=== PATIENT | male | born 1940 | race Caucasian/White ===

== ENCOUNTER → 2016-06-11 10:55 | Outpatient (CLI) | payer MEDICARE, BC ==
[2015-08-10 10:24] VITALS: BMI 30.7
[~2016-06-11 10:55] MED LIST: ACID REDUCER PO; ASPIRIN81 MG PO; BRILINTA90 MG PO; CRESTOR10 MG PO; MULTI-DAY VITAM1 TAB PO; PLAVIX75 MG PO; PRAVACHOL80 MG PO; PRINIVIL20 MG PO; VITAMIN C1000 MG PO; VITAMIN D250000 UNIT PO; VOLTAREN75 MG PO; ZANTAC150 MG PO
== END | disposition home or self-care (01) ==
LOC: D.CT 10:55
DX: E27.9 Disorder of adrenal gland, unspecified (principal)

== ENCOUNTER → 2016-12-06 10:27 | Outpatient (CLI) | payer MEDICARE, BC ==
[2015-08-10 10:24] VITALS: BMI 30.7
== END | disposition home or self-care (01) ==
LOC: D.CT 10:27
DX: E27.9 Disorder of adrenal gland, unspecified (principal)

== ENCOUNTER → 2017-04-09 08:18 | Outpatient (CLI) | payer MEDICARE, BC ==
[2015-08-10 10:24] VITALS: BMI 30.7
== END | disposition home or self-care (01) ==
LOC: D.MRI 08:18
DX: M25.512 Pain in left shoulder (principal)

== ENCOUNTER → 2019-09-16 08:07 | Outpatient (CLI) | payer MEDICARE, BC ==
[2015-08-10 10:24] VITALS: BMI 30.7
== END | disposition home or self-care (01) ==
LOC: D.HCCECHO 08:07
PROVIDERS: ATTEND Internal Medicine Cardiovascular Disease
DX: I25.10 Atherosclerotic heart disease of native coronary artery without angina pectoris (principal)

== ENCOUNTER 2019-10-08 06:59 | Day surgery (SDC) | payer MEDICARE, BC ==
[~2019-10-08] VITALS: Ht 177.8 cm; Wt 103.8 kg
--- NOTE | ~2019-10-08 | HEMODYNAMI ---
PATIENT:JEROD RENEE MEDICAL RECORD: [id number] : 42 LOCATION:D.CAT ADMISSION DATE: 10/08/19 Generatedon:10/08/20199:47 Patient name: JEROD RENEE Patient #: [id number] SSN: [id number] : 1940 Date of study: 10/08/2019 Page: Of Hemodynamic Procedure Report Patient Data Patient Demographics Procedure consent was obtained First Name: JEROD Gender: Male Last Name: THELMA : 1940 [facility] Initial: L Age: 79 year(s) Patient #: [id number] Race: SSN: [id number] Additional ID: [id number] Contact details Address: [address] [place] [address] State: [place] City: [facility] Zip code: [address] Past Medical History Performed procedures and imaging results Date Procedure Procedure Results Comments 09/16/2019 Stress testing Positive->Intermediate with SPECT MPI risk Allergies Allergen Reaction Date Comments Reported Zocor 11/09/2014 Other allergy 11/09/2014 ZETIA Other allergy 11/09/2014 Other allergy 11/09/2014 SEAFOOD Other allergy 10/08/2019 SIMVASTATIN, LATEX, SEAFOOD, Admission Admission Data Admission Date: 10/08/2019 Admission Time: 6:59 Arrival Date: 10/08/2019 Arrival Time: 0:00 Admit Source: Other Insurance Payor: Medicare [facility] #: [id number] Height (in.): 70 BSA: 2.21 (m2) Height (cm.): 177.8 BMI: 32.84 (kg/m2) Weight (lbs.): 228.86 Weight (kg.): 103.81 Lab Results Lab Result Date: 10/08/2019 Lab Result Time: 0:00 Biochemistry Name Units Result Min Max BUN mg/dl 28 --(----)-* 7 18 Creatinine mg/dl 1.2 --(---*)-- 0.6 1.3 eGFR ml/min 61.65314 *-(----)-- 90 120 NONAFRICAN CBC Name Units Result Min Max Hematocrit % 39.7 -*(----)-- 42 54 Hemoglobin g/dl 13.5 --(*---)-- 13.5 17.5 Procedure Procedure Types Cath Procedure Diagnostic Procedure [facility] w/Coronaries Sedation Charges Moderate Sedation up to 15 minutes Procedure Description Procedure Date Procedure Date: 10/08/2019 Procedure Start Time: 9:29 Procedure End Time: 9:46 Procedure Staff Name Function Cliff Dale MD Performing Physician Jenna Napier RT Monitor Sneha Calderon RT Scrub Pedro Art RN Nurse Procedure Data Cath Procedure Fluoroscopy Diagnostic fluoroscopy Total fluoroscopy Time: 3.8 time: 3.8 min min Diagnostic fluoroscopy Total fluoroscopy dose: 626 dose: 626 mGy mGy Contrast Material Contrast Material Type Amount (ml) Isovue 370 65 Entry Location Entry Primary Successful Side Size Upsize Upsize Entry Closure Corrigan ccessful Closure Location (Fr) 1 (Fr) 2 (Fr) Remarks Device Remarks Radial Right 6 Fr Mechanical artery Short Compression Estimated blood loss: 5 ml Diagnostic catheters Device Type Used For End Catheter Placement DIAGNOSTIC Gato 110cm Procedure 5Fr catheter ([id number]) DIAGNOSTIC Luann 5Fr Procedure catheter ([id number]) Procedure Complications No complications Procedure Medications Medication Administration Route Dosage Oxygen etCO2 Nasal cannula 2 l/min Lidocaine 2% added to field 20 Heparin Flush Bag added to field 2 bags (1000units/500ml NS) 0.9% NaCl I.V. 100 ml/hr Radial Cocktail I.A. 1 syringe (Verapamil 2mg/Nitro 400mcg/Heparin 1500units) Versed I.V. 1 mg Fentanyl I.V. 50 mcg Versed I.V. 1 mg Fentanyl I.V. 50 mcg Hemodynamics Rest BSA: 2.21 (m2) HGB: 13.5 (g/dl) O2 Consumption: Estimated: 244.53 (ml/min) O2 Co nsumption indexed: Estimated:110.65 (ml/min/m) Heart Rate: 60 (bpm) Pressure Samples Time Site Value (mmHg) Purpose Heart Use Rate(bpm) 9:34 LV 112/-7,-10 Snapshot 65 Gradients Valve Time Site Site Mean SEP/DFP Peak To Heart Use 1 2 (mmHg) (sec/min) Peak Rate (mmHg) (bpm) Aortic 9:35 LV AO 87 Snapshots Pre Cath Intra NCS Post Cath Vital Signs Time Heart Resp SPO2 etCO2 NIBP (mmHg) Rhythm Pain Sedation Rate (ipm) (%) (mmHg) Status Level (bpm) 9:17:13 60 18 96 37.5 143/81(121) NSR 0 (11) 10(A) , No pain 9:21:38 55 14 94 24 130/75(108) NSR 0 (11) 10(A) , No pain 9:26:00 56 15 95 30 135/75(110) NSR 0 (11) 10(A) , No pain 9:30:20 60 15 94 25.5 125/71(97) NSR 0 (11) 10(A) , No pain 9:34:40 93 16 93 39.7 93/59(86) NSR 0 (11) 9(A) , No pain 9:38:54 64 18 94 28.4 112/59(88) NSR 0 (11) 9(A) , No pain 9:43:14 67 16 94 33 111/67(100) NSR 0 (11) 10(A) , No pain Medications Time Medication Route Dose Verified Delivered Reason Notes Effectiveness by by 9:16:09 Oxygen etCO2 2 l/min Cliff Buffie used for Nasal Chito Art RN procedure cannula 9:16:15 Lidocaine 2% added 20ml Cliff Cliff for local to vial Chito Dale MD anesthetic field 9:17:24 Heparin Flush added 2 bags Cliff Cliff used for Bag to Chito Dale MD procedure (1000units/500ml field NS) 9:22:40 0.9% NaCl I.V. 100 Cliff Buffie Per ml/hr Chito Art RN physician 9:29:31 Versed I.V. 1 mg Cliff Buffie for sedation Chito Art RN 9:29:37 Fentanyl I.V. 50 mcg Cliff Buffie for sedation Chito Art RN 9:33:11 Radial Cocktail I.A. 1 Cliff Cliff for (Verapamil syringe Chito Dale MD vasodilation 2mg/Nitro 400mcg/Heparin 1500units) 9:35:22 Versed I.V. 1 mg Cliff Buffie for sedation Dale MD Art RN 9:35:26 Fentanyl I.V. 50 mcg Cliff Vasquez for sedation Chito Art RN Procedure Log Time Note 8:31:14 Diagnostic Cath Status : Elective 8:31:40 Procedure Status Elective Heart Cath (OP). 8:31:44 Time tracking: Regular hours (M-F 7:00 - 5:00) 8:31:50 Plan of Care:Hemodynamics will remain stable., Cardiac rhythm will remain stable., Comfort level will be maintained., Respiratory function will remain adequate., Patient/ family verbilizes understanding of procedure., Procedure tolerated without complication., Recovers from procedure without complications.. 8:38:27 Lab Result : Creatinine 1.2 mg/dl 8:38:27 Lab Result : BUN 28 mg/dl 8:38:27 Lab Result : Hematocrit 39.7 % 8:38:27 Lab Result : Hemoglobin 13.5 g/dl 8:38:27 Lab Result : eGFR NONAFRICAN 61.28595 ml/min 8:38:30 Arrival Date: 10/08/2019 12:00:00 AM 8:38:32 Patient Height : 70 inches 8:38:39 Patient Weight : 228.86 lbs 8:38:49 Insurance Payor : Medicare 8:38:50 Admit Source: Other 8:39:17 Informed consent obtained and on chart 8:41:59 Lab results completed and on chart. 8:42:17 Stress Test: yes; abnormal INFERIOR 8:42:19 Alarms reviewed by R. N. 8:42:20 Sharps counted by scrub and verified by R.N. 8:43:52 Pedro Art RN sent for patient. Start room use. 8:43:57 Pre-procedure instructions explained to patient. 8:43:57 Pre-op teaching completed and patient verbalized understanding. 8:43:59 Family unavailable. 8:44:03 Patient NPO since Midnight. 8:45:41 Patient allergic to Other allergySIMVASTATIN, LATEX, SEAFOOD, 8:47:49 Risk of Mortality: .2 8:47:51 Risk of blood transfusion: .4 8:47:53 Risk of PRAVEEN: .8 9:06:53 Patient received from Pre/Post Procedure Room to CCL 1 Alert and oriented. Tansferred to table in Supine position. 9:06:55 Warm blankets applied, and frank hugger turned on for patient comfort. 9:06:55 Correct patient and procedure confirmed by team. 9:06:56 ECG and BP/O2 sat monitors applied to patient. 9:07:16 Is the patient allergic to Iodine/contrast media? Yes. 9:07:19 Was the patient premedicated? Yes 9:07:21 Is patient on blood thinner?No 9:07:23 Patient diabetic? No. 9:07:25 ----Pre-sedation anethsthesia assessment.---- 9:07:27 Previous problem with sedation/anesthesia? No ? 9:07:28 Snore? Yes 9:07:29 Sleep apnea? Yes 9:07:31 Deviated septum? No 9:07:39 Opens mouth fully? Yes 9:07:55 Sticks out tongue? Yes 9:07:58 Airway obstruction? No ? 9:08:02 Dentures? Yes IN TIGHT 9:08:07 Pre procedure: right dorsailis pedis pulse 2+ Normal; easily identifiable; not easily obliterated 9:08:10 Patient pain scale 0/10 ?. 9:15:58 Vital chart was started 9:16:05 IV patent on arrival in left antecubital with 0.9% NaCl at [facility]. 9:16:09 Oxygen 2 l/min etCO2 Nasal cannula was administered by Pedro Art RN; used for procedure; Verbal order read back and verified. 9:16:10 Right Radial & Right Groin area was prepped with chlora-prep and draped in sterile fashion 9:16:15 Lidocaine 2% 20ml vial added to field was administered by Cliff Dale MD; for local anesthetic; Verbal order read back and verified. 9:16:16 Full Disclosure recording started 9:16:20 Rhythm: sinus bradycardia 9:16:32 Baseline sample Acquired. 9:16:38 Use device set Radial Dx or PCI 9:16:39 ACIST Syringe (98552) opened to sterile field. 9:16:40 Medline Cath Pack ([id number]) opened to sterile field. 9:16:40 Bag Decanter (2002) opened to sterile field. 9:16:41 ACIST Hand Control (87422) opened to sterile field. 9:16:42 ACIST Manifold (87745) opened to sterile field. 9:16:43 MBrace Wrist Support ([id number]) opened to sterile field. 9:16:43 NEEDLE Cook 21G 4cm Radial ([id number]) opened to sterile field. 9:16:45 EMERALD Guide Wire (183-002) opened to sterile field. 9:16:46 SHEATH 6FR RAIN (5494261) opened to sterile field. 9:17:11 H&P Date Dictated: 10/08/2019 New H&P dictated by physician.. 9:17:24 Heparin Flush Bag (1000units/500ml NS) 2 bags added to field was administered by Cliff Dale MD; used for procedure; Verbal order read back and verified. 9:22:40 0.9% NaCl 100 ml/hr I.V. was administered by Pedro Art RN; Per physician; Verbal order read back and verified. 9:28:00 --------ALL STOP TIME OUT------ 9:28:01 Final Timeout: patient, procedure, and site verified with staff and physician. All members of the team are in agreement. 9:28:03 Right Radial & Right Groin site verified by team. 9:28:07 Fire Safety Assessment: A--An alcohol-based skin anteseptic being used preoperatively., C--Open oxygen or nitrous oxide is being used., D--An ESU, laser, or fiber-optic light is being used. 9:28:11 Physical assessment completed. ASA score P 2 - A patient with mild systemic disease as per Cliff Dale MD. 9:28:16 2) 60-89 Mildly reduced kidney function, and other findings (as for stage 1) point to kidney disease. 9:28:18 Maximum allowable contrast dose (3.7 X eGFR X 0.75)172 ml. 9:28:24 Sedation plan: IV Moderate Sedation Medication:Versed, Fentanyl 9:29:28 Procedure started. 9:29:31 Versed 1 mg I.V. was administered by Pedro Art RN; for sedation; Verbal order read back and verified. 9:29:37 Fentanyl 50 mcg I.V. was administered by Pedro Art RN; for sedation; Verbal order read back and verified. 9:29:59 Local anesthetic to right radial artery with Lidocaine 2% by Cliff Dale MD.INITIAL ACCESS ONLY 9:32:48 A 6 Fr Short sheath was inserted into the Right Radial artery 9:33:05 A DIAGNOSTIC Gato 110cm 5Fr catheter ([id number]) was advanced over the wire and used for Procedure. 9:33:11 Radial Cocktail (Verapamil 2mg/Nitro 400mcg/Heparin 1500units) 1 syringe I.A. was administered by Cliff Dale MD; for vasodilation; Verbal order read back and verified. 9:33:31 LV gram done using ESCUDERO 9:33:52 Injector settings: Ml/sec: 5, Volume: 15, 9:34:59 LV hemodynamics recorded. 9:35:14 EF : 50 % 9:35:22 Versed 1 mg I.V. was administered by Pedro Art RN; for sedation; Verbal order read back and verified. 9:35:26 Fentanyl 50 mcg I.V. was administered by Pedro Art RN; for sedation; Verbal order read back and verified. 9:36:43 RCA angiography performed. 9:36:52 Injector settings: Ml/sec: 3, Volume: 6, 9:38:05 Catheter exchanged over wire. 9:39:22 A DIAGNOSTIC Luann 5Fr catheter ([id number]) was advanced over the wire and used for Procedure. 9:39:49 LCA angiography performed. 9:39:54 Injector settings: Ml/sec: 3, Volume: 6, 9:40:14 ACCDominant side:Right 9:41:34 Catheter removed. 9:42:04 ZEPHYR REGULAR TR BAND (094288) opened to sterile field. 9:43:16 Sheath removed intact; hemostasis achieved with Mechanical Compression to the Right Radial artery. 9:43:18 Procedure ended.(Physican Out) 9:43:33 Fluoroscopy time 03.80 minutes. 9:43:37 Fluoroscopy dose: 626 mGy 9:43:37 Flurop Dose total: 626 9:43:42 Dose Area Product 17587 mGy/cm. 9:43:51 Contrast amount:Isovue 370 65ml. 9:44:55 Maximum allowable dose exceeded? No. 9:44:57 Sharps counted by scrub and verified by R.N. 9:45:01 [place] band inflated with 10cc of air. 9:45:06 Post Procedure Pulses reassessed and unchanged 9:45:10 Post procedure: right dorsailis pedis pulse 2+ Normal; easily identifiable; not easily obliterated. 9:45:13 Post-procedure physical assessment completed. ASA score P 2 - A patient with mild systemic disease as per Cliff Dale MD. 9:45:17 Post procedure rhythm: unchanged. 9:45:25 Estimated blood loss: 5 ml 9:45:26 Post procedure instruction explained to patient.Patient verbalizes understanding. 9:45:27 Patient needs reinforcement of post procedure teaching. 9:46:02 Procedure type changed to Cath procedure, Diagnostic procedure, LHC, LHC w/Coronaries, Sedation Charges, Moderate Sedation up to 15 minutes 9:46:16 Procedure and supply charges have been captured, reviewed, submitted and are correct. 9:46:19 Procedure Complication : No complications 9:46:22 [facility] Findings: mild to moderate CAD (<70%) 9:46:25 Vital chart was stopped 9:46:26 Operative report dictated upon procedure completion. 9:46:27 See physician's report for complete and final results. 9:46:28 Report given to Pre/Post Procedure Room. 9:46:31 Patient transfered to Pre/Post Procedure Room with Stretcher. 9:46:33 Procedure ended. 9:46:33 Full Disclosure recording stopped 9:46:40 End room use (Document Last) 9:46:53 End room use (Document Last) 9:47:10 End room use (Document Last) Device Usage Item Name Manufacture Quantity Catalog Hospital Part Current Minima l Lot# / Number Charge Number Stock Stock Serial# Code ACIST Acist 1 13586 304554 [id number] [id number] 20 Syringe Medical (33680) Systems Inc Medline Medline 1 [id number] 694125 29655 342051 5 Cath Pack ([id number]) Bag Microtek 1 914238 48764 415554 5 Decanter Medical Inc. () ACIST Hand Acist 1 39123 128481 627382 062502 5 Control Medical (38842) Systems Inc ACIST Acist 1 38157 794598 644881 897623 5 Manifold Medical (40549) Systems Inc MBrace Advanced 1 140-0250-00 690205 77140 406401 5 Wrist Vascular Support Dynamics ([id number]) NEEDLE Cook PolyServe Medical 1 [id number] 442006 966497 262018 5 21G 4cm Radial (P62060) EMERALD Cardinal 1 502-683 012443 660023 357584 5 Guide Wire Health (394-455) SHEATH 6FR Cardinal 1 0030027 709317 7765163 008373 5 [facility] Health (8648585) DIAGNOSTIC Terumo 1 40-5023 296817 793823 813732 5 Gato 110cm 5Fr catheter (195603) DIAGNOSTIC Terumo 1 40-5022 609780 846624 160043 5 Luann 5Fr catheter (466274) ZEPHYR Cardinal 1 522244 824688 3964649 348315 5 REGULAR TR Health BAND (272521) Signature Audit [place] Stage Time Signature Unsigned Intra-Procedure 10/08/2019 Jenna Napier 9:46:53 AM RT(R) Intra-Procedure 10/08/2019 Pedro Art RN 9:47:10 AM Intra-Procedure 10/08/2019 Cliff Dale MD 9:47:32 AM [facility] [address] [place] [address]
[2019-10-08] MEDS ORDERED: LEXAPRO10 MG PO (07:28)
[2019-10-08] MEDS ORDERED: PROTONIX40 MG PO (07:28)
[2019-10-08] MEDS ORDERED: DIOVAN80 MG PO (07:29)
[2019-10-08] MEDS ORDERED: RELAFEN750 MG PO (07:30)
[2019-10-08 07:45] VITALS: BP 144/65; Ht 177.8 cm; Wt 103.8 kg
[2019-10-08 08:08] LABS: ANION GAP 11.3 mmol/L (8-16); CALCIUM 8.5 mg/dL (8.5-10.1); CARBON DIOXIDE 24.9 mmol/L (21.0-32.0); CHOL - HDL RATIO 2.4 ratio (2.3-4.9); CREATININE - SERUM 1.2 mg/dL (0.6-1.3); LDL-HDL RATIO 1.2 ratio (1.5-3.5); POTASSIUM - SERUM 4.2 mmol/L (3.5-5.1)
[2019-10-08 08:10] LABS: BASOPHILS 0.1 % (0-2); EOSINOPHILS 1.7 % (0-7); HEMATOCRIT 39.7 % (42.0-54.0); HEMOGLOBIN 13.5 g/dL (13.5-17.5); IMMATURE GRANULOCYTES 0.4 % (0-5); LYMPHOCYTES 44.6 % (15-50); MCH 31.7 pg (26.0-34.0); MCV 93.2 fL (80.0-100.0); MEAN PLATELET VOLUME 10.4 fL (7.4-10.4); MONOCYTES 11.3 % (2-11); NEUTROPHILS 41.9 % (40-80); PLATELET COUNT 261 10x3/uL (130-400); RBC 4.26 10x6/uL (4.20-6.10); RDW 15.6 % (11.5-14.5); WBC 8.2 10x3/uL (4.8-10.8)
--- NOTE | 2019-10-08 09:59 | NUR ---
PT ARRIVED BY STRETCHER. PLACED ON MONITORS. ASSESSMENT COMPLETED. VSS AT THIS TIME. FAMILY AT BEDSIDE. DR. STEEL ROUNDED AND SPOKE WITH PT'S FAMILY POST PROCEDURE. CALL LIGHT WITHIN REACH.
--- NOTE | 2019-10-08 10:15 | NUR ---
RIGHT WRIST Z BAND IN PLACE. NO BLEEDING/HEMATOMA NOTED. CALL LIGHT WITHIN REACH. VSS AT THIS TIME. DENIES NAUSEA/PAIN. RIGHT HAND CAP REFILL < 3 SECS AND WARM TO TOUCH.
--- NOTE | 2019-10-08 10:45 | NUR ---
RIGHT WRIST Z BAND IN PLACE. NO BLEEDING/HEMATOMA NOTED. CALL LIGHT WITHIN REACH. VSS AT THIS TIME. PT RESTING COMFORTABLY.
--- NOTE | 2019-10-08 11:00 | NUR ---
2cc OF AIR REMOVED FROM Z BAND. NO BLEEDING/HEMATOMA NOTED. PT TOLERATED WELL. MORE AWAKE AT THIS TIME. SET UP WITH COFFEE AND SANDWICH TRAY. VSS. NO OTHER NEEDS AT THIS TIME.
--- NOTE | 2019-10-08 11:15 | NUR ---
3cc OF AIR REMOVED FROM Z BAND. NO BLEEDING/HEMATOMA NOTED. CALL LIGHT WITHIN REACH. VSS.
--- NOTE | 2019-10-08 11:30 | NUR ---
4cc OF AIR REMOVED FROM Z BAND. NO BLEEDING/HEMATOMA NOTED. CALL LIGHT WITHIN REACH. VSS AT THIS TIME. DENIES NAUSEA/PAIN.
--- NOTE | 2019-10-08 11:45 | NUR ---
Z BAND REMOVED AND DRESSING APPLIED. NO BLEEDING/HEMATOMA NOTED. PT TOLERATED WELL. PIV D/C'D WITH CATH TIP INTACT. PT INSTRUCTED TO GET UP AND DRESSED AT THIS TIME. FAMILY AT BEDSIDE TO ASSIST.
--- NOTE | 2019-10-08 12:00 | NUR ---
PT VOIDED 500cc OF CLEAR YELLOW URINE IN URINAL WITHOUT DIFFICULTY. RIGHT WRIST DRESSING C/D/I. NO S/S OF HEMATOMA NOTED.
--- NOTE | 2019-10-08 12:05 | NUR ---
DISCUSSED DISCHARGE INSTRUCTIONS WITH PT AND PT'S FAMILY. THEY VOICED UNDERSTANDING.
--- NOTE | 2019-10-08 12:10 | NUR ---
PT TAKEND DOWN TO VEHICLE BY WHEELCHAIR. NO S/S OF DISTRESS NOTED. ALL BELONGINGS AND PAPERWORK IN HAND. RIGHT WRIST DRESSING C/D/I. NO S/S OF HEMATOMA NOTED.
== END 2019-10-08 12:10 | disposition home or self-care (01) ==
LOC: D.CATH 06:59
PROVIDERS: ATTEND Internal Medicine Cardiovascular Disease
DX: I25.119 Atherosclerotic heart disease of native coronary artery with unspecified angina pectoris (principal); R94.39 Abnormal result of other cardiovascular function study; K21.9 Gastro-esophageal reflux disease without esophagitis; E78.5 Hyperlipidemia, unspecified; I10 Essential (primary) hypertension; R06.00 Dyspnea, unspecified

== ENCOUNTER → 2020-08-25 20:26 | Outpatient (CLI) | payer MEDICARE, BC ==
[2019-12-22 08:35] VITALS: BMI 32.3
[~2020-08-25 20:26] MED LIST changes: +DIOVAN320 MG PO; +ELIQUIS5 MG PO; +LEXAPRO10 MG PO; +NORVASC5 MG PO; +PROTONIX40 MG PO; +RELAFEN750 MG PO; +TYLENOL ARTHRI650 MG PO
== END | disposition home or self-care (01) ==
LOC: D.LABREF 20:26
PROVIDERS: ATTEND Orthopaedic Surgery
DX: M17.11 Unilateral primary osteoarthritis, right knee (principal)